=== PATIENT | female | born 1950 | race Caucasian/White ===

== ENCOUNTER 2018-04-25 08:23 | Emergency (ER) | payer OTHER, MEDICARE ==
[2018-04-25 09:26] LABS: Urine Blood TRACE (NEG); Urine Glucose NEGATIVE (NEG); Urine Protein NEGATIVE (NEG); Urine Specific Gravity 1.015 (1.005-1.030); Urine pH 5.5 (5.0-7.0)
--- NOTE | 2018-04-25 09:37 | RAD REPORT ---
EXAM DESCRIPTION: CT - Head C Spine Cap Wo Con - 04/25/2018 9:17 am CLINICAL HISTORY: Trauma, head and neck injury. Chest, abdomen and pelvis pain. COMPARISON: 04/03/2017, 03/28/2017 TECHNIQUE: CT head without contrast. CT cervical spine without contrast with coronal and sagittal reformatted images. CT chest, abdomen and pelvis without contrast with coronal and sagittal reform[facility]. All CT scans are performed using dose optimization technique as appropriate and may include automated exposure control or mA/KV adjustment according to patient size. FINDINGS: CT HEAD WITHOUT CONTRAST: No intracranial hemorrhage, hydrocephalus or extra-axial fluid collection. Moderate generalized brain atrophy is present with mild to moderate periventricular and deep white matter chronic microvascular ischemic changes. No areas of brain edema or midline shift. The paranasal sinuses and mastoids are clear. The calvarium is intact. CT CERVICAL SPINE WITHOUT CONTRAST: No fracture or subluxation. The prevertebral soft tissues are normal in thickness. CT CHEST, ABDOMEN, PELVIS WITHOUT CONTRAST: NOTE: Lack of contrast is a significant limitation in the assessment of trauma related findings. Spec ifically, solid organ, vascular and bowel evaluation is significantly limited. The lungs are clear.No pneumothorax or pericardial/pleural fluid. No evidence of intra-abdominal visceral injury, free fluid or free air is seen within the above detai led limitations. Significant splenomegaly is present. Mild liver cirrhosis with cholecystectomy clips . No concerning pelvic findings. Compression fracture affects L3 vertebral body, new since 03/28/2017. Vertebral body height loss is e stimated at 15-20%. Mild posterior cortex retropulsion is seen without significant canal compromise. IMPRESSION: Acute compression fracture suspected involving the L3 vertebral body. Estimated vertebra l body height loss is 15-20%. No significant canal compromise.
[2018-04-25 09:53] LABS: Absolute Monocytes 0.6 K/uL (0.1-1.3); Absolute Neutrophil 4.2 K/uL (1.8-8.0); Basophils % 0.4 % (0-1.3); Eosinophils % 1.6 % (0-4.4); Hematocrit 38.8 % (36.0-45.0); Lymphocytes % 17.1 % (15.3-44.8); MCH 33.1 pg (27.0-35.0); MCV 97.1 fL (80-100); MPV 8.3 fL (7.6-11.3); Monocytes % 9.6 % (3.3-12.3)
[2018-04-25] MEDS ORDERED: SMZ./TMP. 800/160 MG TABLET ONE (10:00)
[2018-04-25] MEDS ORDERED: TRAMADOL HCL 50 MG TAB ONE (10:01)
[2018-04-25 10:07] LABS: Potassium 4.7 mEq/L (3.6-5.0)
--- NOTE | 2018-04-25 10:08 | ER ---
Nurse's Notes [facility] Name: Damari Frances Age: 68 yrs Sex: Female : 1950 Arrival Date: 04/25/2018 Time: 08:26 Bed 5 Private MD: Maria De Jesus Lane C Diagnosis: Other slipping, tripping and stumbling and falls;Low back pain;Wedge compression fracture of unspecified lumbar vertebra Presentation: 04/25 08:30 Presenting complaint: states: " She fell last night in the kitchen, I heard her ph fall, it looked like she fell into the cabinets." Pt denies LOC, also reports taking baby aspirin daily but denies other blood thinners. Pt c/o pain in L mid back, L hip, and L thigh, also reports burning w/ urination and frequency. Pt and argumentative in triage. Transition of care: patient was not received from another setting of care. Onset of symptoms was April 25, 2018. Risk Assessment: Do you want to hurt yourself or someone else? Patient reports no desire to harm self or others. Initial Sepsis Screen: Does the patient meet any 2 criteria? No. Patient's initial sepsis screen is negative. Does the patient have a suspected source of infection? No. Patient's initial sepsis screen is negative. Care prior to arrival: None. 08:30 Method Of Arrival: Wheelchair ph 08:30 Acuity: DWAYNE 3 ph 08:45 Mechanism of Injury: Fall from standing position. Trauma event details: Injury occurred ss in the [facility], Injury occurred: at home. Trauma Activation: Not Applicable Physician: ED Physician; Name: ; Notified At: ; Arrived At: Physician: General Surgeon; Name: ; Notified At: ; Arrived At: Physician: Radiology; Name: ; Notified At: ; Arrived At: Physician: Respiratory; Name: ; Notified At: ; Arrived At: Physician: Lab; Name: ; Notified At: ; Arrived At: Historical: - Allergies: 08:35 Codeine; ph 08:35 Hydrocodone-Acetaminophen; ph 08:35 iodine - iv contrast; ph - PMHx: 08:35 ADD/ADHD; Anxiety; CHF; Diabetes - IDDM; fatty liver disease; GERD; Hepatitis; ph Hypertension; - PSHx: 08:35 Tubal ligation; Cholecystectomy; ph - Immunization history:: Adult Immunizations unknown. - Social history:: Smoking status: Patient/guardian denies using tobacco. - Immunization history: Last tetanus immunization: unknown. - Ebola Screening: : No symptoms or risks identified at this time. Screenin:50 Abuse screen: Denies threats or abuse. Denies injuries from another. Tuberculosis ss screening: Never had TB. 09:18 Nutritional screening: No deficits noted. Fall Risk Fall in past 12 months (25 points). ss Secondary diagnosis (15 points) impaired mobility, IV access (20 points). Ambulatory Aid- None/Bed Rest/Nurse Assist (0 pts). Gait- Weak (10 pts.). Mental Status- Oriented to own ability (0 pts). Primary Survey: 08:50 A: Airway: patent, No supplemental oxygen in use on arrival. Oral cavity: clear, ss Trachea midline. Breathing/Chest: Respiratory pattern: regular, Respiratory effort: spontaneous, unlabored, Breath sounds: clear, bilaterally. Chest inspection: symmetrical rise and fall of the chest. Circulation: Heart tones present. Pulses: palpable right radial artery, right posterior tibial artery, left radial artery and left posterior tibial artery. Skin color: pink, Skin temperature: warm. Disability Alert. 09:30 Reassessment Airway Airway Breathing/Chest Respiratory pattern Regular Respiratory ss effort Spontaneous Unlabored Breath sounds Clear Circulation Pulses Palpable Color [place] Disability Alert. Secondary Survey: 08:50 HEENT: No deficits noted. : Reports burning with urination, pain in suprapubic area ss since "a few days". Pt has a hx of frequent UTIs urgency, urinary frequency. Musculoskeletal: Circulation, motion, and sensation intact. Range of motion: intact in all extremities, Swelling present in left wrist. Assessment: 08:50 General: Appears comfortable, Behavior is calm, cooperative, Denies fever, feeling ill, ss fatigue, chills. Pain: Complains of pain in L wrist, R hip and suprapubic area. Pain currently is 7 out of 10 on a pain scale. Quality of pain is described as aching, pressure, tender, Pain began hip and wrist pain began after fall last night, suprapubic pain x "a few days". Pt also reports chronic shoulder, chest and upper back pain Is continuous, Aggravated by repositioning. Neuro: Level of Consciousness is awake, alert, obeys commands, Oriented to person, place, time, situation, [place]er are equal bilaterally Speech is normal, Facial symmetry appears normal, Pupils are PERRLA. EENT: Nares are clear Oral mucosa is moist. Throat is clear. Respiratory: Airway is patent Trachea midline Respiratory effort is even, unlabored, Respiratory pattern is regular, symmetrical, Breath sounds are clear bilaterally. GI: Bowel sounds present X 4 quads. Abdomen is tender to palpation in suprapubic area Patient currently denies constipation, nausea, vomiting. : Reports burning with urination, urgency, urinary frequency. Derm: Skin is intact, is fragile, is thin, Skin is dry, Skin is pink, warm \\T\\ dry. normal. Derm: Bruising that is dark purple, on left wrist. Musculoskeletal: Circulation, motion, and sensation intact. Range of motion: intact in all extremities, Swelling present in left wrist. 09:15 General: Pt to CT VIA wheelchair with ARMINDA Payton tech. . ss 10:19 Reassessment: Patient appears in no apparent distress at this time. Patient is alert, ss oriented x 3, equal unlabored respirations, skin warm/dry/pink. placed patient onto bedpan as patient feels as if she needs to void. Up for discharge at this time, however waiting for provider to discuss results prior to discharge. 10:45 Reassessment:. ss Vital Signs: 08:36 BP 176 / 60; Pulse 66; Resp 16; Temp 97.7; Pulse Ox 97% on R/A; Weight 93.44 kg; Height ph 5 ft. 1 in. (154.94 cm); 08:36 Body Mass Index 38.92 (93.44 kg, 154.94 cm) ph [place] Coma Score: 08:50 Eye Response: spontaneous(4). Verbal Response: oriented(5). Motor Response: obeys ss commands(6). Total: 15. Trauma Score (Adult): 08:50 Eye Response: spontaneous(1); Verbal Response: oriented(1); Motor Response: obeys ss commands(2); Systolic BP: > 89 mm Hg(4); Respiratory Rate: 10 to 29 per min(4); Paula Score: 15; Trauma Score: 12 ED Course: 08:26 Patient arrived in ED. mr 08:[address] MD is Private Physician. mr 08:27 Patrick Castorena MD is Attending Physician. kdr 08:35 Triage completed. ph 08:36 Arm band placed on. ph 08:50 Patient has correct armband on for positive identification. Bed in low position. Call ss light in reach. Patient maintains SpO2 saturation greater than 95% on room air. freight agent on. Pulse ox on. NIBP on. 08:50 Patient maintains SpO2 saturation greater than 95% on room air. ss 09:[address] via stretcher. sw 09:09 Myranda Toscano, KARON is Primary Nurse. ss 09:12 Straight cath inserted, using sterile technique, 16 Fr. Specimen obtained. Returned ss clear yellow urine. Patient tolerated well. 09:[address] via stretcher. sj 09:14 CT completed. Patient tolerated procedure well. Patient moved back from CT. sj 09:15 Urine collected: straight cath specimen, cloudy, stephen colored. jb1 09:17 CT Traumagram (Head C Spine CAP wo con) In Process Unspecified. EDMS 09:46 Initial lab(s) drawn, by ne, sent to lab. Inserted saline lock: 22 gauge in left jb1 antecubital area, using aseptic technique. Blood collected. 10:00 Thermoregulation: warm blanket given to patient. ss 10:[address] MD is Referral Physician. kdr 12:00 No provider procedures requiring assistance completed. IV discontinued, intact, iw bleeding controlled, No redness/swelling at site. Pressure dressing applied. Administered Medications: 10:03 Drug: traMADol 50 mg Route: PO; sv 10:39 Follow up: Response: No adverse reaction sv 10:03 Drug: Bactrim (160 mg-800 mg (DS) 1 tablet Route: PO; sv 10:39 Follow up: Response: No adverse reaction sv Intake: 09:30 PO: 0ml; Total: 0ml. ss Outcome: 10:08 Discharge ordered by . kdr 12:00 Discharged to home via wheelchair, with significant other. iw 12:00 Condition: stable 12:00 Discharge instructions given to patient, Instructed on discharge instructions, follow up and referral plans. medication usage, Demonstrated understanding of instructions, follow-up care, medications, Prescriptions given X 1. 12:00 Patient's length of stay in the Emergency Department was greater than 2 hours. ss 12:01 Patient left the ED. iw Addendum: 04/28/2018 07:35 Addendum: Culture Results: Positive urine culture. Patient was not prescribed s s antibiotics at discharge. Report given to RAFAEL for further evaluation and then to pigment pumper for follow up with patient. Signatures: Dispatcher [employer] EDAbner Fajardo Stephanie, KARON RN Patrick Amaya MD MD [facility] Ceferino, Tanja mr Otf, Elva Stanford RN RN Myranda Toscano RN RN Rena Lopez RN RN French, Dafne
--- NOTE | 2018-04-25 10:08 | EDPHYS ---
Physician Documentation [facility] Name: Damari Frances Age: 68 yrs Sex: Female : 1950 Arrival Date: 04/25/2018 Time: 08:26 Bed 5 Private MD: Maria De Jesus Lane C ED Physician Patrick Castorena HPI: 04/25 09:56 This 68 yrs old Female presents to ER via Wheelchair with complaints of Fall kdr Injury. 09:56 Details of fall: The patient fell from an upright position, while standing. Onset: The kdr symptoms/episode began/occurred suddenly, last night. Associated injuries: The patient sustained injury to the low back, decreased range of motion, pain, pain with movement. Severity of symptoms: At their worst the symptoms were mild, in the emergency department the symptoms are unchanged. The patient has not experienced similar symptoms in the past. The patient has not recently seen a physician. The patient fell while walking to the kitchen last night. Her was nearby but did not witness the fall. She denies LOC and now only c/o low back right flank pain. She has no other c/o at this time and appears to be otherwise in usual state of health. Historical: - Allergies: 08:35 Codeine; ph 08:35 Hydrocodone-Acetaminophen; ph 08:35 iodine - iv contrast; ph - PMHx: 08:35 ADD/ADHD; Anxiety; CHF; Diabetes - IDDM; fatty liver disease; GERD; Hepatitis; ph Hypertension; - PSHx: 08:35 Tubal ligation; Cholecystectomy; ph - Immunization history:: Adult Immunizations unknown. - Social history:: Smoking status: Patient/guardian denies using tobacco. - Immunization history: Last tetanus immunization: unknown. - Ebola Screening: : No symptoms or risks identified at this time. ROS: 09:56 Constitutional: Negative for fever, chills, and weight loss, Eyes: Negative for injury, kdr pain, redness, and discharge, ENT: Negative for injury, pain, and discharge, Neck: Negative for injury, pain, and swelling, Cardiovascular: Negative for chest pain, palpitations, and edema, Respiratory: Negative for shortness of breath, cough, wheezing, and pleuritic chest pain, Abdomen/GI: Negative for abdominal pain, nausea, vomiting, diarrhea, and constipation, : Negative for injury, bleeding, discharge, and swelling, MS/Extremity: Negative for injury and deformity, Skin: Negative for injury, rash, and discoloration, Neuro: Negative for headache, weakness, numbness, tingling, and seizure activity. Psych: Negative for depression, anxiety, suicide ideation, homicidal ideation, and hallucinations, Allergy/Immunology: Negative for hives, rash, and allergies, Endocrine: Negative for neck swelling, polydipsia, polyuria, polyphagia, and marked weight changes, Hematologic/Lymphatic: Negative for swollen nodes, abnormal bleeding, and unusual bruising. 09:56 Back: Positive for injury or acute deformity, decreased range of motion, pain at rest, pain with movement, radiated pain, of the lumbar area. Exam: 09:56 Constitutional: This is a well developed, well nourished patient who is awake, alert, kdr and in no acute distress. Head/Face: Normocephalic, atraumatic. Eyes: Pupils equal round and reactive to light, extra-ocular motions intact. Lids and lashes normal. Conjunctiva and sclera are non-icteric and not injected. Cornea within normal limits. Periorbital areas with no swelling, redness, or edema. Neck: Trachea midline, no thyromegaly or masses palpated, and no cervical lymphadenopathy. Supple, full range of motion without nuchal rigidity, or vertebral point tenderness. No Meningismus. Chest/axilla: Normal chest wall appearance and motion. Nontender with no deformity. No lesions are appreciated. Cardiovascular: Regular rate and rhythm with a normal S1 and S2. No gallops, murmurs, or rubs. Normal PMI, no JVD. No pulse deficits. Respiratory: Lungs have equal breath sounds bilaterally, clear to auscultation and percussion. No rales, rhonchi or wheezes noted. No increased work of breathing, no retractions or nasal flaring. Abdomen/GI: Soft, non-tender, with normal bowel sounds. No distension or tympany. No guarding or rebound. No evidence of tenderness throughout. Skin: Warm, dry with normal turgor. Normal color with no rashes, no lesions, and no evidence of cellulitis. MS/ Extremity: Pulses equal, no cyanosis. Neurovascular intact. Full, normal range of motion. Neuro: Awake and alert, GCS 15, oriented to person, place, time, and situation. Cranial nerves II-XII grossly intact. Motor strength 5/5 in all extremities. Sensory grossly intact. Cerebellar exam normal. Normal gait. Psych: Awake, alert, with orientation to person, place and time. Behavior, mood, and affect are within normal limits. 09:56 Back: pain, that is mild, ROM is painful, normal spinal alignment noted, CVA tenderness, is absent, vertebral tenderness, is not appreciated, Straight leg raises: of both lower extremities does not illicit pain. Vital Signs: 08:36 BP 176 / 60; Pulse 66; Resp 16; Temp 97.7; Pulse Ox 97% on R/A; Weight 93.44 kg; Height ph 5 ft. 1 in. (154.94 cm); 08:36 Body Mass Index 38.92 (93.44 kg, 154.94 cm) ph [place] Coma Score: 08:50 Eye Response: spontaneous(4). Verbal Response: oriented(5). Motor Response: obeys ss commands(6). Total: 15. Trauma Score (Adult): 08:50 Eye Response: spontaneous(1); Verbal Response: oriented(1); Motor Response: obeys ss commands(2); Systolic BP: > 89 mm Hg(4); Respiratory Rate: 10 to 29 per min(4); Paula Score: 15; Trauma Score: 12 MDM: 09:56 Data reviewed: vital signs, nurses notes, lab test result(s), radiologic studies. kdr Counseling: I had a detailed discussion with the patient and/or guardian regarding: the historical points, exam findings, and any diagnostic results supporting the discharge/admit diagnosis, lab results, radiology results, the need for outpatient follow up. 10:08 Patient medically screened. kdr 04/25 08:59 Order name: Basic Metabolic Panel kdr 04/25 08:59 Order name: CBC with Diff; Complete Time: 09:56 kdr 04/25 08:59 Order name: Creatinine for Radiology kdr 04/25 08:59 Order name: Type And Screen kdr 04/25 08:59 Order name: Urine Culture kdr 04/25 09:17 Order name: Urine Dipstick--Ancillary (enter results) bd 04/25 08:59 Order name: CT Traumagram (Head C Spine CAP wo con); Complete Time: 09:53 kdr 04/25 08:59 Order name: Labs collected and sent; Complete Time: 09:47 kdr 04/25 08:59 Order name: Urine Dipstick-Ancillary (obtain specimen): Cath UA; Complete Time: 09:10 kdr 04/25 09:17 Order name: Urine Dipstick-Ancillary; Complete Time: 09:53 EDMS Administered Medications: 10:03 Drug: traMADol 50 mg Route: PO; sv 10:39 Follow up: Response: No adverse reaction sv 10:03 Drug: Bactrim (160 mg-800 mg (DS) 1 tablet Route: PO; sv 10:39 Follow up: Response: No adverse reaction sv Disposition: 04/25/18 10:08 Discharged to Home. Impression: Other slipping, tripping and stumbling and falls, Low back pain, Wedge compression fracture of unspecified lumbar vertebra. - Condition is Stable. - Discharge Instructions: Back, Compression Fracture, Musculoskeletal Pain, Back Pain, Adult, [id number]. - Prescriptions for Tramadol 50 mg Oral Tablet - take 1 tablet by ORAL route every 8 hours as needed; 20 tablet. - Medication Reconciliation Form, Thank You Letter, Prescription Opioid Use form. - Follow up: Maria De Jesus Lane MD; When: 2 - 3 days; Reason: If symptoms return, Further diagnostic work-up, Recheck today's complaints, Continuance of care, Re-evaluation by your physician. - Problem is new. - Symptoms have improved. Signatures: Dispatcher [employer] EDOK Jewell Abel RN RN sv Rittger, Kevin, MD MD kdr Elva Cheng RN RN iw Myranda Toscano RN RN Rena Lopez RN RN ph Corrections: (The following items were deleted from the chart) 12:01 10:08 04/25/2018 10:08 Discharged to Home. Impression: Other slipping, tripping and iw stumbling and falls; Low back pain; Wedge compression fracture of unspecified lumbar vertebra. Condition is Stable. Forms are Medication Reconciliation Form, Thank You Letter, Antibiotic Education, Prescription Opioid Use. Follow up: Maria De Jesus Lane; When: 2 - 3 days; Reason: If symptoms return, Further diagnostic work-up, Recheck today's complaints, Continuance of care, Re-evaluation by your physician. Problem is new. Symptoms have improved. kdr
[2018-04-25 12:14] VITALS: BP 176/60; TEMP 97.7; O2SAT 97
== END 2018-04-25 12:01 | disposition home or self-care (01) ==
LOC: ER 08:23
DX: S32.000A Wedge compression fracture of unspecified lumbar vertebra, initial encounter for closed fracture (principal); I10 Essential (primary) hypertension; W01.0XXA Fall on same level from slipping, tripping and stumbling without subsequent striking against object, initial encounter; Y93.01 Activity, walking, marching and hiking; Y92.000 Kitchen of unspecified non-institutional (private) residence as the place of occurrence of the external cause; Z88.5 Allergy status to narcotic agent; Z91.041 Radiographic dye allergy status
CPT/HCPCS: 36415; 51702; 70450; 71250; 72125; 80048; 81003; 85025; 86850; 86900; 86901; 87077; 87086; 87088; 87186; 99285

== ENCOUNTER 2018-04-28 11:45 | Emergency (ER) | payer OTHER, MEDICARE ==
[2018-04-28] MEDS ORDERED: ONDANSETRON 4 MG (ODT) TAB ONE (14:36)
[2018-04-28] MEDS ORDERED: MORPHINE 4 MG/ML SYR ONE (14:36)
[2018-04-28] MEDS ORDERED: CEFTRIAXONE 1000 MG/VIAL ONE (14:44)
[2018-04-28] MEDS ORDERED: LIDOCAINE 1% MPF 5 ML VIAL ONE (14:44)
--- NOTE | 2018-04-28 15:00 | ER ---
Nurse's Notes [facility] Name: Damari Frances Age: 68 yrs Sex: Female : 1950 Arrival Date: 04/28/2018 Time: 11:49 Bed 26 Private MD: Yogi Laen Diagnosis: Urinary tract infection, site not specified;Wedge compression fracture of third lumbar vertebra Presentation: 04/28 12:02 Presenting complaint: Presenting complaint: Patient states: Low back pain that radiates hb to right leg x 4 days. Pt was recently seen in ED for same s/s, says pain has not improved. 12:03 Transition of care: patient was not received from another setting of care. Onset of hb symptoms was April 25, 2018. Risk Assessment: Do you want to hurt yourself or someone else? Patient reports no desire to harm self or others. Initial Sepsis Screen: Does the patient meet any 2 criteria? No. Patient's initial sepsis screen is negative. Does the patient have a suspected source of infection? No. Patient's initial sepsis screen is negative. Care prior to arrival: None. 12:03 Method Of Arrival: Wheelchair hb 12:03 Acuity: DWAYNE 4 hb Triage Assessment: 12:04 General: Appears in no apparent distress. uncomfortable, Behavior is cooperative, hb agitated, anxious. Pain: Pain currently is 10 out of 10 on a pain scale. Neuro: Level of Consciousness is awake, alert, obeys commands, Oriented to person, place, time, situation. Cardiovascular: Capillary refill < 3 seconds Patient's skin is warm and dry. Respiratory: Airway is patent Trachea midline Respiratory effort is even, unlabored, Respiratory pattern is regular, symmetrical. Musculoskeletal: Reports pain in back. Historical: - Allergies: 12:06 Codeine; hb 12:06 Hydrocodone-Acetaminophen; hb 12:06 iodine - iv contrast; hb - PMHx: 12:06 ADD/ADHD; Anxiety; CHF; Diabetes - IDDM; fatty liver disease; GERD; Hepatitis; hb Hypertension; - PSHx: 12:06 Tubal ligation; Cholecystectomy; hb - Immunization history:: Adult Immunizations up to date. - Social history:: Smoking status: Patient/guardian denies using tobacco. - Ebola Screening: : No symptoms or risks identified at this time. Screenin:30 Abuse screen: Denies threats or abuse. Denies injuries from another. Nutritional kr2 screening: No deficits noted. Tuberculosis screening: No symptoms or risk factors identified. Fall Risk Fall in past 12 months (25 points). Assessment: 13:30 General: Appears in no apparent distress. comfortable, unkempt, well developed, well kr2 nourished, Behavior is cooperative, anxious. Pain: Complains of pain in back Pain radiates to right leg. Neuro: Level of Consciousness is awake, alert, obeys commands, Oriented to person, place, time, situation. Cardiovascular: Capillary refill < 3 seconds in bilateral fingers Patient's skin is warm and dry. Respiratory: Airway is patent Respiratory effort is even, unlabored, Respiratory pattern is regular, symmetrical. GI: Abdomen is flat, non-distended. : Reports urinary frequency. EENT: Oral mucosa is moist. Derm: Skin is intact, is healthy with good turgor, Skin is pink, warm \T\ dry. Musculoskeletal: Circulation, motion, and sensation intact. Vital Signs: 12:04 BP 113 / 81; Pulse 100; Resp 20; Temp 99.2(O); Pulse Ox 95% ; Weight 93.44 kg; Height 5 hb ft. 1 in. (154.94 cm); Pain 10/10; 12:55 BP 118 / 86; Pulse 100; Resp 18; Pulse Ox 100% ; Pain 10/10; hb 15:30 BP 116 / 88; Pulse 98; Resp 19; Pulse Ox 97% on R/A; kr2 12:04 Body Mass Index 38.92 (93.44 kg, 154.94 cm) hb ED Course: 11:49 Patient arrived in ED. sb2 11:[address] MD is Private Physician. sb2 12:04 Triage completed. hb 12:04 Arm band placed on right wrist. hb 12:54 Patient Pt c/o chest pain, EKG done in triage. hb 12:57 EKG done, by ED staff, reviewed by Yousuf Brenner MD. jb1 13:25 Rayshawn Swain, KARON is Primary Nurse. sg 13:43 Jb Daniel NP is PHCP. pm1 13:43 Patrick Castorena MD is Attending Physician. pm1 14:[address] MD is Referral Physician. pm1 15:19 Johny, Na, RN is Primary Nurse. kr2 15:29 Patient has correct armband on for positive identification. Bed in low position. Call kr2 light in reach. Side rails up X2. Pulse ox on. NIBP on. Door closed. Warm blanket given. Head of bed elevated. 15:29 No provider procedures requiring assistance completed. Patient did not have IV access kr2 during this emergency room visit. Administered Medications: 14:38 Drug: morphine 4 mg Route: IM; Site: right deltoid; kr2 15:31 Follow up: Response: No adverse reaction; Pain is decreased kr2 14:38 Drug: Zofran 4 mg Route: PO; kr2 15:31 Follow up: Response: No adverse reaction kr2 14:58 Drug: Rocephin (cefTRIAXone) 1 grams Route: IM; Site: right gluteus; kr2 15:31 Follow up: Response: No adverse reaction kr2 Outcome: 15:00 Discharge ordered by MD. pm1 15:29 Discharged to home via wheelchair, with family. kr2 15:29 Condition: good 15:29 Discharge instructions given to patient, family, Instructed on discharge instructions, follow up and referral plans. medication usage, Demonstrated understanding of instructions, follow-up care, medications, Prescriptions given X 2. 15:31 Patient left the ED. kr2 Signatures: Abner Zambrano jb1 Rayshawn Swain RN RN sg Jb Daniel NP WAITER/WAITRESS COUNTER pm1 Ashley Malagon RN RN hb Reaves, Karey, RN RN kr2 Lisa Colón sb2 Corrections: (The following items were deleted from the chart) 12:04 12:02 Presenting complaint: hb hb
--- NOTE | 2018-04-28 15:00 | EDPHYS ---
Physician Documentation [facility] Name: Damari Frances Age: 68 yrs Sex: Female : 1950 Arrival Date: 04/28/2018 Time: 11:49 Bed 26 Private MD: Yogi Lane ED Physician Patrick Castorena Historical: - Allergies: 04/28 12:06 Codeine; hb 12:06 Hydrocodone-Acetaminophen; hb 12:06 iodine - iv contrast; hb - PMHx: 12:06 ADD/ADHD; Anxiety; CHF; Diabetes - IDDM; fatty liver disease; GERD; Hepatitis; hb Hypertension; - PSHx: 12:06 Tubal ligation; Cholecystectomy; hb - Immunization history:: Adult Immunizations up to date. - Social history:: Smoking status: Patient/guardian denies using tobacco. - Ebola Screening: : No symptoms or risks identified at this time. Vital Signs: 12:04 BP 113 / 81; Pulse 100; Resp 20; Temp 99.2(O); Pulse Ox 95% ; Weight 93.44 kg; Height 5 hb ft. 1 in. (154.94 cm); Pain 10/10; 12:55 BP 118 / 86; Pulse 100; Resp 18; Pulse Ox 100% ; Pain 10/10; hb 15:30 BP 116 / 88; Pulse 98; Resp 19; Pulse Ox 97% on R/A; kr2 12:04 Body Mass Index 38.92 (93.44 kg, 154.94 cm) hb MDM: 13:46 [facility] 14[facility]58 Data reviewed: vital signs. Data interpreted: Pulse oximetry: on room air is 100 %. pm1 Interpretation: normal. Counseling: I had a detailed discussion with the patient and/or guardian regarding: the historical points, exam findings, and any diagnostic results supporting the discharge/admit diagnosis, the need for outpatient follow up, to return to the emergency department if symptoms worsen or persist or if there are any questions or concerns that arise at home. Administered Medications: 14:38 Drug: morphine 4 mg Route: IM; Site: right deltoid; kr2 15:31 Follow up: Response: No adverse reaction; Pain is decreased kr2 14:38 Drug: Zofran 4 mg Route: PO; kr2 15:31 Follow up: Response: No adverse reaction kr2 14:58 Drug: Rocephin (cefTRIAXone) 1 grams Route: IM; Site: right gluteus; kr2 15:31 Follow up: Response: No adverse reaction kr2 Disposition: 16:46 Co-signature as Attending Physician, Patrick Castorena MD I agree with the assessment and kdr plan of care. Disposition: 04/28/18 15:00 Discharged to Home. Impression: Wedge compression fracture of third lumbar vertebra, Urinary tract infection, site not specified. - Condition is Stable. - Discharge Instructions: Back, Compression Fracture, Urinary Tract Infection, [id number], Antibiotic Medication, Antibiotic Use, [id number]. - Prescriptions for Augmentin 875- 125 mg Oral Tablet - take 1 tablet by ORAL route every 12 hours for 10 days; 20 tablet. Tramadol 50 mg Oral Tablet - take 1 tablet by ORAL route every 8 hours as needed; 12 tablet. - Medication Reconciliation Form, Thank You Letter, Prescription Opioid Use form. - Follow up: Emergency Department; When: As needed; Reason: Worsening of condition. Follow up: Yogi Lane MD; When: 2 - 3 days; Reason: Recheck today's complaints, Continuance of care, Re-evaluation by your physician. - Problem is new. - Symptoms have improved. Addendum: 05/09/2018 04:30 Addendum: HPI: This 68 yrs old female presents to ED with complaints of lower back pain p m1 that radiates to right lower leg. Patient seen here in the ER 3 days ago for low back pain after a fall in the kitchen. Patient fell from upright position, while standing. Patient reports no improvement in low back pain with medications. No headache, head injury, neck pain. No LOC. No incontinence, lower extremity numbness or tingling. Addendum: ROS: Constitutional: Negative for fever, chills, and weight loss. Eyes: Negative for injury, pain, redness, and discharge. ENT: negative for injury, pain, and discharge. Neck: Negative for injury, pain, and swelling. Cardiovascular: Negative for chest pain, palpitations, edema, Respiratory: Negative for SOB, cough, wheezing. Abdomen: Negative for abdominal pain, N/V/D. : negative for injury, bleeding, discharge, and swelling. MS/Extremity: Negative for injury and deformity. Skin: Negative for injury, rash, and discoloration. Neuro:negative for headache, weakness, numbness, tingling. Back: Positive for pain, decreased range of motion due to pain. Pain at rest and pain with movement. Radiation of pain from lumbar area to right leg. Addendum: Exam: Constitutional: This is a well developed, well nourished patient who is awake, alert, and in no acute distress. Head/Face: Normocephalic, Atraumatic Eyes: PERRL, EOMI, lids and lashes normal. No periorbital swelling, redness, or edema. neck: Trachea midline, supple, FROM intact without pain. No vertebral tenderness. Chest/Axilla: Normal chest wall appearance and motion. Nontender without deformity. Cardiovascular: RRR with normal S1 and S2. No gallops, murmurs, or rubs. No pulse deficits. Respiratory: lungs clear to auscultation, Equal breath sounds bilaterally Abdomen: Soft nontender with normal bowel sounds. Skin: warm, dry with normal turgor. Normal color with no rashes, lesions. MS/Extremity: Pulses equal, no cyanosis. FROM all extremities. Neuro: Alert and awake x 4, GCS 15. Sensory grossly intact. Back: pain, mild. ROM is painful, normal spinal alignment. CVA tenderness absent. No vertebral tenderness.. 04:30 Addendum: MDM: Patient reports no antibiotic prescription was given for her UTI from p m1 the last visit. Will give patient Rocephin IM here and discharge with antibiotic therapy. Signatures: Yousuf Brenner MD MD cha Rittger, Kevin, MD MD kdr Marinas, Patrick, NP AGRICULTURAL ECONOMIST pm1 Ashley Malagon RN RN hb Reaves, Karey, RN RN kr2 Corrections: (The following items were deleted from the chart) 04/28 15:00 15:00 04/28/2018 15:00 Discharged to Home. Impression: Urinary tract infection, site pm1 not specified. Condition is Stable. Forms are Medication Reconciliation Form, Thank You Letter, Antibiotic Education, Prescription Opioid Use. Follow up: Emergency Department; When: As needed; Reason: Worsening of condition. Follow up: Yogi Lane; When: 2 - 3 days; Reason: Recheck today's complaints, Continuance of care, Re-evaluation by your physician. Problem is new. Symptoms have improved. pm1 15:31 15:00 04/28/2018 15:00 Discharged to Home. Impression: Wedge compression fracture of kr2 third lumbar vertebraUrinary tract infection, site not specified. Condition is Stable. Forms are Medication Reconciliation Form, Thank You Letter, Antibiotic Education, Prescription Opioid Use. Follow up: Emergency Department; When: As needed; Reason: Worsening of condition. Follow up: Yogi Lane; When: 2 - 3 days; Reason: Recheck today's complaints, Continuance of care, Re-evaluation by your physician. Problem is new. Symptoms have improved. pm1
[2018-04-28 17:03] VITALS: TEMP 99.2
[2018-04-28 17:05] VITALS: BP 116/88; O2SAT 97
--- NOTE | 2018-04-29 05:35 | EKG ---
Test Date: 2018-04-28 Test Time: 12:55:24 Healthcare Corporate Account Director: EMS MEASUREMENT RESULTS: Intervals: Rate: 100 DE: 156 QRSD: 96 QT: 374 QTc: 482 [place]: P: 18 DE: 156 QRS: -39 T: 48 INTERPRETIVE STATEMENTS: Normal sinus rhythm Left axis deviation Minimal voltage criteria for LVH, may be normal variant Abnormal ECG Compared to ECG 08/05/2017 22:34:45 No significant changes Electronically Signed On 04-29-18 05:33:29 CDT by Gilberto Stein
== END 2018-04-28 15:31 | disposition home or self-care (01) ==
LOC: ER 11:45
DX: S32.030A Wedge compression fracture of third lumbar vertebra, initial encounter for closed fracture (principal); N39.0 Urinary tract infection, site not specified; I10 Essential (primary) hypertension; E11.9 Type 2 diabetes mellitus without complications; Z88.5 Allergy status to narcotic agent; Z91.041 Radiographic dye allergy status
CPT/HCPCS: 93005; 96372; 99284